=== PATIENT | female | born 1965 | race Caucasian/White ===

== ENCOUNTER → 2017-07-04 | Outpatient (CLI) | payer OTHER ==
--- NOTE | 2017-07-04 09:22 | WWHP ---
[facility] - HISTORY AND PHYSICAL DATE OF SERVICE: 07/04/2017 CHIEF COMPLAINT: The patient is here for her routine gynecologic exam and mammogram. HPI: This is a 51-year-old, G2, P2 with an LMP of 06/06/17. She is status post tubal ligation. She is without gynecologic complaints. She states her periods are regular every month and she denies any intermenstrual bleeding or menstrual problems. PAST MEDICAL HISTORY: Rheumatoid arthritis. MEDICATIONS: 1. Methotrexate 10 pills weekly. 2. Prednisone 10 mg daily. 3. Folic acid 1 daily. ALLERGIES: No known drug allergies. PAST SURGICAL HISTORY: Breast biopsies in 2014 and 2015, tonsillectomy, section x2, and tubal ligation in the past. 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 SOCIAL HISTORY: She briefly smoked in 1993, but quit then. She has about 1 to 2 alcohol containing drinks per month and denies drug use. 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 FAMILY HISTORY: Unremarkable. REVIEW OF SYSTEMS: She has gained about 12 pounds over the last year. She denies respiratory, cardiac or GI problems. PHYSICAL EXAM: Blood pressure 100/60, height 5 feet 6 inches, weight 192 pounds. Temperature 98.4, pulse 94. This is a well-developed, well-nourished, white female, who is alert and oriented x3, in no acute distress HEENT is within normal limits. NECK: Supple without mass or thyromegaly. CHEST AND LUNGS: Clear to auscultation. HEART: Regular rate and rhythm. Breasts are without mass or discharge. Axillary exam is negative for adenopathy. BACK: Negative for CVA tenderness. ABDOMEN: Soft, nontender, without palpable masses. PELVIC EXAM: Normal external genitalia. Cervix and vagina appear normal. There is no unusual discharge and no evidence of prolapse. The uterus is mid position, nongravid size and nontender. There are no palpable adnexal masses or tenderness. Rectovaginal exam is negative for mass or tenderness and is negative for occult blood. EXTREMITIES: Nontender. IMPRESSION: A 51-year-old female with normal gynecologic exam who continues to have regular menstrual periods and is status post tubal ligation. PLAN: 1. Pap smear was deferred since she had a negative one last year. 2. Self-breast examination was discussed. 3. Mammogram will be done today. 4. Osteoporosis prevention was discussed. 5. Screening colonoscopy was recommended because of her age and she states she will do this through Dr. Peña, her primary care physician. 6. She will return in 1 year. 7. She will also call if she is having menstrual problems. MMILNA / BON: [id number] /
--- NOTE | 2017-07-06 09:55 | MM ---
Reason for exam: screening (asymptomatic). Last mammogram was performed 1 year and 1 month ago. History: Family history of breast cancer in grandmother. Benign left breast aspiration of the left breast, April 18, 2013. Physical Findings: A clinical breast exam by your physician is recommended on an annual basis and results should be correlated with mammographic findings. MG 3D Screening Mammo W/Cad Bilateral CC and MLO view(s) were taken. Prior study comparison: June 08, 2016, right breast MG work up mamm w CAD RT. June 06, 2016, bilateral MG screening mammo w CAD. The breast tissue is heterogeneously dense. This may lower the sensitivity of mammography. Previous mammotome biopsy in the right breast. There is chronic nodularity in the left breast. No significant changes when compared with prior studies. ASSESSMENT: Negative, BI-RAD 1 RECOMMENDATION: Routine screening mammogram of both breasts in 1 year.
== END ==
LOC: WWCWWP 07:46
PROVIDERS: ATTEND Obstetrics & Gynecology
DX: Z12.31 Encounter for screening mammogram for malignant neoplasm of breast (principal)
CPT/HCPCS: 77063; G0202

== ENCOUNTER 2017-09-27 09:07 | Emergency (ER) | payer OTHER ==
[2017-09-27] MEDS ORDERED: KETOROLAC 60 MG/2 ML VIAL IM STA (09:24)
--- NOTE | 2017-09-27 09:29 | ED ---
General Adult HPI - General Chief complaint: Trauma Stated complaint: RIB PAIN LEFT SIDE Time Seen by Provider: 09/27/17 09:18 Source: patient, RN notes reviewed Mode of arrival: ambulatory Limitations: no limitations - History of Present Illness Initial comments: This a 51-year-old female presents emergency Department chief complaint of left- sided rib pain. Patient states this started on Sunday after she lifted her mother who is essentially non-weightbearing on her leg because she had foot surgery. She states she went to her primary care physician who told her that she tore some cartilage from her bed. She states that there is an area that is severely tender when you palpate over it. She states she does have pain with deep inspiration but has no shortness of breath. She denies any palpitations, abdominal pain, nausea, vomiting diarrhea constipation. She states she was given Toradol which helped tremendously but states she was prescribed codeine baclofen has not helped. Patient states that she try to go to work today the pain is unbearable and she was told to leave work and to be evaluated. - Related Data Home Medications Medication Instructions Recorded Confirmed Acetaminophen-Codeine 300-30mg 1 tab PO TID PRN 09/27/17 09/27/17 [Tylenol #3] Baclofen [Lioresal] 20 mg PO BID PRN 09/27/17 09/27/17 Previous Rx's Medication Instructions Recorded Hydrocodone/Acetaminophen [[place] 1 tab PO Q6HR PRN #20 tab 09/27/17 5-325] Ibuprofen [Motrin] 600 mg PO Q8HR PRN #30 tab 09/27/17 Levofloxacin [Levaquin] 500 mg PO DAILY #10 tab 09/27/17 Allergies Allergy/AdvReac Type Severity Reaction Status Date / Time No Known Allergies Allergy Verified 09/27/17 09:28 Review of Systems ROS Statement: Those systems with pertinent positive or pertinent negative responses have been documented in the HPI. ROS Other: All systems not noted in ROS Statement are negative. Past Medical History Additional Past Medical History / Comment(s): RA History of Any Multi-Drug Resistant Organisms: None Reported Past Surgical History: Section, Tonsillectomy, Tubal Ligation Past Psychological History: No Psychological Hx Reported Smoking Status: Never smoker Past Alcohol Use History: Rare Past Drug Use History: None Reported General Exam Limitations: no limitations General appearance: alert, in no apparent distress Head exam: Present: atraumatic, normocephalic, normal inspection Neck exam: Present: normal inspection, full ROM. Absent: tenderness, meningismus, lymphadenopathy Respiratory exam: Present: normal lung sounds bilaterally, chest wall tenderness (Tenderness over the left anterior lateral ribs just inferior to the breast). Absent: respiratory distress, wheezes, rales, rhonchi, stridor Cardiovascular Exam: Present: regular rate, normal rhythm, normal heart sounds. Absent: systolic murmur, diastolic murmur, rubs, gallop, clicks GI/Abdominal exam: Present: soft, normal bowel sounds. Absent: distended, tenderness, guarding, rebound, rigid Back exam: Absent: CVA tenderness (R), CVA tenderness (L) Neurological exam: Present: alert, oriented X3, CN II-XII intact, reflexes normal. Absent: motor sensory deficit Skin exam: Present: warm, dry, intact, normal color. Absent: rash Course Vital Signs 09/27/17 09:12 Temperature 97.5 F L Pulse Rate 113 H Respiratory 20 Rate Blood Pressure 126/74 O2 Sat by Pulse 100 Oximetry Medical Decision Making - Medical Decision Making 51-year-old female presented emergency from for left-sided rib pain. Patient had injury after lifting her mother. Patient's pain is reproducible. Chest x- ray shows no rib fracture though she has developed pneumonia secondary to poor inspiration. Patient will be discharged on antibiotics, since a spirometry, anti-inflammatories and [place]. I did advise her that she needs a recheck in 2 days return for any worsening symptoms. Disposition Clinical Impression: Chest wall muscle strain, Pneumonia Disposition: HOME SELF-CARE Condition: Stable Instructions: Chest Wall Pain (ED), Pneumonia (ED) Additional Instructions: Please return to the Emergency Department if symptoms worsen or any other concerns. Prescriptions: Hydrocodone/Acetaminophen [[place] 5-325] 1 tab PO Q6HR PRN #20 tab PRN Reason: Pain Ibuprofen [Motrin] 600 mg PO Q8HR PRN #30 tab PRN Reason: Pain Levofloxacin [Levaquin] 500 mg PO DAILY #10 tab Referrals: Denise Peña DO [Primary Care Provider] - 1-2 days Time of Disposition: 10:02
--- NOTE | 2017-09-27 09:51 | XR ---
EXAMINATION TYPE: XR ribs LT w pa chest xray DATE OF EXAM: 09/27/2017 COMPARISON: NONE HISTORY: Pain TECHNIQUE: Single view of the chest for views of the ribs are submitted. FINDINGS: Left basilar atelectasis or infiltrate. No Evidence for pneumothorax. No evidence for foca l contusion. Mediastinal structures are midline. Evaluation of the ribs fails to demonstrate eviden ce for displaced rib fracture or secondary sign of rib fracture. IMPRESSION: 1. No evidence for displaced left-sided rib fracture however at the left lung base there is atelectas is and/or infiltrate noted. Correlate clinically.
[2017-09-27 10:25] VITALS: BP 110/56; PULSE 91; RESP 18; TEMP 97.4
== END 2017-09-27 10:25 | disposition home or self-care (01) ==
LOC: EC 09:07
DX: S29.011A Strain of muscle and tendon of front wall of thorax, initial encounter (principal); X50.0XXA Overexertion from strenuous movement or load, initial encounter; Y93.F2 Activity, caregiving, lifting; Y92.009 Unspecified place in unspecified non-institutional (private) residence as the place of occurrence of the external cause
CPT/HCPCS: 93005; 71101; 99284; 96372; J1885

== ENCOUNTER 2017-11-03 21:18 | Emergency (ER) | payer OTHER ==
[2017-11-03] MEDS ORDERED: MORPHINE SULFATE 4 MG/ML SYRINGE IV STA (22:47)
[2017-11-03] MEDS ORDERED: methylPREDNISolone SOD SUCCI 125 MG/2 ML VIAL IM STA (22:47)
--- NOTE | 2017-11-03 22:57 | ED ---
General Adult HPI - General Chief complaint: Shortness of Breath Stated complaint: Sob Time Seen by Provider: 11/03/17 22:35 Source: patient, family Mode of arrival: wheelchair Limitations: no limitations - History of Present Illness Initial comments: This patient is a 51-year-old woman who presents with complaint that she is having a flareup of her rheumatoid arthritis. She is having pains in the bilateral hips, knees, ankles, and wrists especially. She states that she had been taking methotrexate up until approximately one month ago, when she developed some mouth ulcerations and some odynophagia. She states that her roll coverer, Dr. Ni then stopped her methotrexate and put her on prednisone. She states that she is currently taking about 30 mg of prednisone daily, but she has had ever increasing pain. She states that she will be due to start biologic therapy for the RA, but she was still having the pre- administration clearance. The patient is denying symptoms of infection, including no fever, chills, cough, sinus congestion, sore throat, chest pain, abdominal pain, nausea or vomiting, dysuria or frequency. She did state that she was having so much pain that she was hyperventilating when she woke up and she felt like she couldn't catch her breath for number of minutes. -: days(s) Quality: dull, constant Consistency: constant Improves with: none Worsens with: none Associated Symptoms: denies other symptoms Treatments Prior to Arrival: NSAID - Related Data Home Medications Medication Instructions Recorded Confirmed Acetaminophen-Codeine 300-30mg 1 tab PO TID PRN 09/27/17 09/27/17 [Tylenol #3] Baclofen [Lioresal] 20 mg PO BID PRN 09/27/17 09/27/17 Previous Rx's Medication Instructions Recorded Hydrocodone/Acetaminophen [[place] 1 tab PO Q6HR PRN #20 tab 09/27/17 5-325] Ibuprofen [Motrin] 600 mg PO Q8HR PRN #30 tab 09/27/17 Levofloxacin [Levaquin] 500 mg PO DAILY #10 tab 09/27/17 Allergies Allergy/AdvReac Type Severity Reaction Status Date / Time No Known Allergies Allergy Verified 11/03/17 21:31 Review of Systems ROS Statement: Those systems with pertinent positive or pertinent negative responses have been documented in the HPI. ROS Other: All systems not noted in ROS Statement are negative. Constitutional: Denies: fever, chills ENT: Denies: throat pain, congestion Respiratory: Reports: as per HPI. Denies: cough Cardiovascular: Denies: chest pain, palpitations, orthopnea, edema Gastrointestinal: Denies: abdominal pain, nausea, vomiting, diarrhea Genitourinary: Denies: dysuria, hematuria Musculoskeletal: Reports: as per HPI, arthralgia Skin: Denies: rash Neurological: Denies: headache Psychiatric: Denies: anxiety Past Medical History Past Medical History: Pneumonia Additional Past Medical History / Comment(s): RA History of Any Multi-Drug Resistant Organisms: None Reported Past Surgical History: Section, Tonsillectomy, Tubal Ligation Past Psychological History: No Psychological Hx Reported Smoking Status: Never smoker Past Alcohol Use History: Rare Past Drug Use History: None Reported General Exam Limitations: no limitations General appearance: alert, in no apparent distress Head exam: Present: atraumatic, normocephalic Eye exam: Present: normal appearance. Absent: scleral icterus, conjunctival injection ENT exam: Present: normal oropharynx Neck exam: Present: normal inspection, full ROM Respiratory exam: Present: normal lung sounds bilaterally. Absent: respiratory distress, wheezes, rales, rhonchi, stridor Cardiovascular Exam: Present: regular rate, normal rhythm, normal heart sounds GI/Abdominal exam: Present: soft. Absent: distended, tenderness, guarding, rebound, rigid, mass Extremities exam: Present: normal inspection, normal capillary refill. Absent: pedal edema, calf tenderness Back exam: Present: normal inspection. Absent: CVA tenderness (R), CVA tenderness (L) Neurological exam: Present: alert Skin exam: Present: warm, dry, intact, normal color. Absent: rash Course Vital Signs 11/03/17 11/03/17 21:26 23:19 Temperature 97.2 F L 97.6 F Pulse Rate 108 H 78 Respiratory 24 16 Rate Blood Pressure 104/60 124/62 O2 Sat by Pulse 97 100 Oximetry Medical Decision Making - Medical Decision Making Patient is a 51-year-old woman with exacerbation of rheumatoid arthritis joint pains. The patient chief complaint initially entered as dyspnea, but on repeat questioning, patient states she only has some shortness of breath when she is waking up and trying to get out of bed and she believes that this may be a reflection of the joint pain she is having. He is not having any chest symptoms here. Chest x-ray was initially ordered but declined. Patient given analgesic and steroid and to follow-up with Dr. Ni. Disposition Clinical Impression: Rheumatoid arthritis Disposition: HOME SELF-CARE Condition: Good Instructions: Rheumatoid Arthritis (ED) Referrals: Denise Peña DO [Primary Care Provider] - 1-2 days Candelaria Ni MD [STAFF PHYSICIAN] - 1-2 days
[2017-11-03 23:20] VITALS: RESP 16; TEMP 97.6
[2017-11-04 00:29] VITALS: BP 148/93; PULSE 84
== END 2017-11-04 00:29 | disposition home or self-care (01) ==
LOC: EC 21:18
DX: M06.9 Rheumatoid arthritis, unspecified (principal); R06.02 Shortness of breath
CPT/HCPCS: 99284; 96374; 96372; J2270; J2930

== ENCOUNTER 2017-11-19 21:48 | Emergency (ER) | payer OTHER ==
[2017-11-19] MEDS ORDERED: MORPHINE SULFATE 4 MG/ML SYRINGE IM STA (23:47)
[2017-11-19] MEDS ORDERED: methylPREDNISolone SOD SUCCI 125 MG/2 ML VIAL IM ONE (23:47)
--- NOTE | 2017-11-19 23:49 | ED ---
General Adult HPI - General Chief complaint: Recheck/Abnormal Lab/Rx Stated complaint: extreme pain from lupus and RA Time Seen by Provider: 11/19/17 23:29 Source: patient Mode of arrival: wheelchair Limitations: no limitations - History of Present Illness Initial comments: This patient is a 51-year-old woman with history of which she is told was rheumatoid arthritis, presenting with a flare up of polyarthralgias. She indicates that she has had pain and swelling to the MCP joints of both hands. She is also having bilateral shoulder, bilateral hip, bilateral wrist and knee pains. Her condition had been doing relatively well until she started tapering off her steroid dose. She had been taking 60 mg prednisone daily, and when she decreased to 40 mg she noted that the symptoms were returning. The patient had recently started with a new tire mold engraver, Dr. Thompson (sp?), Who saw her and she states "sent off 16 vials of blood," and will be following with her in the coming week. The patient states she is here to see if she should increase her steroid dose until then. Patient is denying any signs or symptoms of infection, including no fevers or chills, no cough, sinus congestion, sore throat, headache, neck pain, dyspnea, nausea or vomiting, or any change in urination or bowel movements. -: days(s) Quality: aching Consistency: constant Improves with: other (Steroids) Worsens with: none Associated Symptoms: denies other symptoms - Related Data Home Medications Medication Instructions Recorded Confirmed Folic Acid 2 mg PO DAILY 11/19/17 11/19/17 Unknown Pain Medication 2 tab PO TID PRN 11/19/17 11/19/17 predniSONE 40 mg PO DIRECTED 11/19/17 11/19/17 Previous Rx's Medication Instructions Recorded predniSONE 60 mg PO DAILY #30 tab 11/19/17 Allergies Allergy/AdvReac Type Severity Reaction Status Date / Time No Known Allergies Allergy Verified 11/19/17 22:59 Review of Systems ROS Statement: Those systems with pertinent positive or pertinent negative responses have been documented in the HPI. ROS Other: All systems not noted in ROS Statement are negative. Constitutional: Denies: fever, chills, weakness Eyes: Denies: vision change ENT: Denies: ear pain, congestion Respiratory: Denies: cough, dyspnea Cardiovascular: Denies: chest pain, palpitations, edema Gastrointestinal: Denies: abdominal pain, nausea, vomiting, diarrhea Genitourinary: Denies: dysuria, frequency, hematuria Musculoskeletal: Reports: as per HPI, joint swelling, arthralgia Skin: Denies: rash Neurological: Denies: headache Past Medical History Past Medical History: Pneumonia Additional Past Medical History / Comment(s): RA History of Any Multi-Drug Resistant Organisms: None Reported Past Surgical History: Section, Tonsillectomy, Tubal Ligation Past Psychological History: No Psychological Hx Reported Smoking Status: Never smoker Past Alcohol Use History: Rare Past Drug Use History: None Reported General Exam Limitations: no limitations General appearance: alert, in no apparent distress Head exam: Present: atraumatic, normocephalic Eye exam: Present: normal appearance. Absent: scleral icterus, conjunctival injection ENT exam: Present: normal oropharynx Neck exam: Present: full ROM Respiratory exam: Present: normal lung sounds bilaterally. Absent: respiratory distress, wheezes, rales, rhonchi, stridor Cardiovascular Exam: Present: regular rate, normal rhythm, normal heart sounds. Absent: systolic murmur, diastolic murmur, rubs, gallop GI/Abdominal exam: Present: soft. Absent: distended, tenderness, guarding Extremities exam: Present: other (Patient has some swelling at the MCP joints of the bilateral hands. No erythema or warmth.) Back exam: Present: normal inspection Neurological exam: Present: alert Skin exam: Present: warm, dry, intact, normal color. Absent: rash Course Vital Signs 11/19/17 22:05 Temperature 97 F L Pulse Rate 101 H Respiratory 16 Rate Blood Pressure 109/60 O2 Sat by Pulse 99 Oximetry Disposition Clinical Impression: Polyarthralgia Disposition: HOME SELF-CARE Condition: Fair Instructions: Arthralgia (ED) Prescriptions: predniSONE 60 mg PO DAILY #30 tab Referrals: Denise Peña DO [Primary Care Provider] - 1-2 days
[2017-11-20 00:35] VITALS: BP 109/57; PULSE 85; RESP 17; TEMP 97.8
== END 2017-11-20 00:35 | disposition home or self-care (01) ==
LOC: EC 21:48
DX: M25.512 Pain in left shoulder (principal); M25.511 Pain in right shoulder; M25.551 Pain in right hip; M25.552 Pain in left hip; M25.531 Pain in right wrist; M25.532 Pain in left wrist; M25.561 Pain in right knee; M25.562 Pain in left knee; M25.541 Pain in joints of right hand; M25.542 Pain in joints of left hand; M06.9 Rheumatoid arthritis, unspecified; Z79.52 Long term (current) use of systemic steroids
CPT/HCPCS: 99283; 96372 ×2; J2270; J2930

== ENCOUNTER → 2018-08-06 | Outpatient (CLI) | payer OTHER ==
[2018-08-06 15:31] VITALS: BP 116/68; PULSE 69; TEMP 98.2; BMI 23.0
--- NOTE | 2018-08-06 16:10 | P.HPOB ---
History of Present Illness H&P Date: 08/06/18 Chief Complaint: The patient is here for her routine gynecologic exam and mammogram. This is a 52-year-old with an LMP of 07/18/2018. The patient states her menses continue to be regular every month that seem to have gotten longer. They are not extremely heavy, but can last up to 10 days. She is status post tubal ligation. She is otherwise without gynecologic complaints. Review of Systems The patient has lost 45 pounds over the last year. She attributes this to the diagnosis of lupus this year. She denies respiratory, cardiac, or G.I. problems. Past Medical History Past Medical History: Rheumatoid Arthritis (RA) Additional Past Medical History / Comment(s): Lupus with skin involvement. 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 History of Any Multi-Drug Resistant Organisms: None Reported Past Surgical History: Breast Surgery (2014+2015), Section (x2), Tonsillectomy, Tubal Ligation Past Psychological History: No Psychological Hx Reported Smoking Status: Former smoker (Briefly smoked in 1993) Past Alcohol Use History: Rare (One or 2 per month) Past Drug Use History: None Reported Additional History: She has been since 1996 works for [employer] doing [email or web address]ce[employer] and [employer]. - Past Family History Father Family Medical History: No Reported History Mother Family Medical History: No Reported History Medications and Allergies Home Medications Medication Instructions Recorded Confirmed Type predniSONE 60 mg PO DAILY #30 tab 11/19/17 08/06/18 Rx Hydroxychloroquine Sulfate 200 mg PO BID 08/06/18 08/06/18 History [Plaquenil] Allergies Allergy/AdvReac Type Severity Reaction Status Date / Time No Known Allergies Allergy Verified 08/06/18 15:25 Exam Vital Signs Temp Pulse BP 08/06/18 15:25 98.2 F 69 116/68 Intake and Output 08/06/18 08/06/18 08/06/18 06:59 14:59 22:59 Other: Weight 66.678 kg Height 5'7", weight 147 pounds, BMI 23.0. This is a well-developed well-nourished white female who is alert and oriented times 3 in no acute distress. HEENT: Within normal limits. NECK: Supple without mass or thyromegaly. CHEST AND LUNGS: Clear to auscultation. HEART: Regular rate and rhythm. BREASTS: Are without mass or discharge. AXILLARY EXAM: Negative for adenopathy. BACK: Negative for CVA tenderness. ABDOMEN: Soft, nontender, without palpable masses. PELVIC EXAM: Normal external genitalia with mild atrophy. Cervix and vagina appear normal with mild atrophy. There is no unusual discharge. There is no evidence of prolapse. The uterus is midposition, multiparous, nongravid size and nontender. There are no palpable adnexal masses or tenderness. RECTAL EXAM: rectovaginal exam is negative for mass or tenderness and is negative for occult blood. EXTREMITIES: Nontender. IMPRESSION: 1. 52-year-old premenopausal female status post tubal sterilization with normal gynecologic exam. 2. Mild increase in length of menstrual periods without extremely heavy flow. PLAN: 1. Pap smear was performed. 2. Self breast awareness was discussed with the patient. 3. Screening mammogram will be done today. 4. We have had a long discussion regarding her menstrual periods. She will keep an menstrual calendar and call if having menstrual irregularities or problems such as heavy or worsening prolongation of periods. 5. I have recommended screening colonoscopy. Dr. Reid's name was given to the patient for this. She can also discuss this with Dr. Peña for other recommendations. 6. Osteoporosis prevention was discussed. 7. She will return in one year.
--- NOTE | 2018-08-12 10:21 | MM ---
Reason for exam: screening (asymptomatic). Last mammogram was performed 1 year and 1 month ago. History: Family history of breast cancer in grandmother. Benign left breast aspiration of the left breast, April 18, 2013. Physical Findings: A clinical breast exam by your physician is recommended on an annual basis and results should be correlated with mammographic findings. MG 3D Screening Mammo W/Cad Bilateral CC and MLO view(s) were taken. Prior study comparison: July 04, 2017, bilateral MG 3d screening mammo w/cad. June 08, 2016, right breast MG work up mamm w CAD RT. The breast tissue is heterogeneously dense. This may lower the sensitivity of mammography. Previous mammotome biopsy in the right breast. There is chronic nodularity in the right breast. No significant changes when compared with prior studies. ASSESSMENT: Benign, BI-RAD 2 RECOMMENDATION: Routine screening mammogram of both breasts in 1 year.
== END | disposition home or self-care (01) ==
LOC: WWCWWP 14:49
PROVIDERS: ATTEND Obstetrics & Gynecology
DX: Z12.31 Encounter for screening mammogram for malignant neoplasm of breast (principal)
CPT/HCPCS: 77063; 77067

== ENCOUNTER → 2019-10-01 | Outpatient (CLI) | payer OTHER ==
[2019-10-01 10:43] VITALS: BP 106/61; PULSE 74; RESP 16; TEMP 97.8
--- NOTE | 2019-10-01 11:27 | P.HPOB ---
History of Present Illness H&P Date: 10/01/19 Chief Complaint: The patient is here for her routine gynecologic exam and ma mmogram. This is a 53-year-old with an LMP of 09/22/2019. The patient states her menses are regular every month and are getting shorter. She denies any significant hot flashes. She has been experiencing some urinary symptoms where she tends to void smaller amounts and occasionally has some urinary urgency even though she had recently voided. She denies dysuria. She states it is not like a typical urinary tract infection which she has had in the past. She denies any vaginal odor. She is status post tubal ligation. Review of Systems The patient has gained 27 pounds over the last year. She thinks this is related to her diet and from drinking large amounts of pop. She denies respiratory, cardiac, or G.I. problems. Past Medical History Past Medical History: Rheumatoid Arthritis (RA) Additional Past Medical History / Comment(s): Lupus with skin involvement. 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 History of Any Multi-Drug Resistant Organisms: None Reported Past Surgical History: Breast Surgery, Section, Tonsillectomy, Tubal Ligation Additional Past Surgical History / Comment(s): Breast biopsies. section 2. Past Psychological History: No Psychological Hx Reported Smoking Status: Former smoker Past Alcohol Use History: Occasional (1 or 2 per month) Additional Past Alcohol Use History / Comment(s): Briefly smoked in 1993. 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 - Past Family History Father Family Medical History: No Reported History Mother Family Medical History: No Reported History Medications and Allergies Home Medications Medication Instructions Recorded Confirmed Type Adalimumab [Humira] 10 mg SQ WEEKLY 10/01/19 10/01/19 History predniSONE 10 mg PO DAILY PRN 10/01/19 10/01/19 History Allergies Allergy/AdvReac Type Severity Reaction Status Date / Time No Known Allergies Allergy Verified 10/01/19 10:43 Exam Vital Signs Temp Pulse Resp BP Pulse Ox 10/01/19 10:36 97.8 F 74 16 106/61 98 Intake and Output 09/30/19 10/01/19 10/01/19 22:59 06:59 14:59 Other: Weight 78.925 kg Height 5 feet 4 inches, weight 174 pounds, BMI 29.9. This is a well-developed well-nourished white female who is alert and oriented times 3 in no acute distress. HEENT: Within normal limits. NECK: Supple without mass or thyromegaly. CHEST AND LUNGS: Clear to auscultation. HEART: Regular rate and rhythm. BREASTS: Are without mass or discharge. AXILLARY EXAM: Negative for adenopathy. BACK: Negative for CVA tenderness. ABDOMEN: Soft, nontender, without palpable masses. PELVIC EXAM: Normal external genitalia with minimal atrophy. Cervix and vagina appear normal. There is no unusual discharge. There is no evidence of prolapse. The uterus is midposition, approximately 10 week size and nontender. There are no palpable adnexal masses or tenderness. RECTAL EXAM: Rectovaginal exam is negative for mass or tenderness and is negative for occult blood. EXTREMITIES: Nontender. IMPRESSION: 1. 53-year-old premenopausal female who is status post tubal ligation with mild uterine enlargement. 2. Occasional urinary urgency. Differential diagnosis will include UTI or uterine pressure on the bladder from possible uterine fibroids. PLAN: 1. Pap smear was deferred since she had a negative one on 08/06/2018. 2. Self breast awareness was discussed with the patient. 3. Screening mammogram will be done today. 4. Clean catch midstream urine specimen will be obtained for urinalysis and culture with sensitivity. I have recommended that she try to empty the bladder as completely as possible with more time and by relaxation and not by bearing down. I have also recommended avoiding holding urine longer than needed and I have also suggested having a trial of timed voids. I also recommended regular kegal exercises and instructions were given on this. 5. I have recommended pelvic ultrasound to further evaluate the uterine enlargement. 6. Weight control was discussed with the patient. I have stressed the importance of good nutrition, regular meals, regular exercise and adequate fiber in the diet. 7. She was advised to return in one year for her annual well woman exam and as needed.
[2019-10-01 13:40] LABS: Appearance,Urine Clear (Clear); Bilirubin,Urine Negative (Negative); Blood,Urine Negative (Negative); Color,Urine Yellow; Glucose,Urine (UA) Negative (Negative); Ketones,Urine Negative (Negative); Leukocyte Esterase,Urine Negative (Negative); Nitrite,Urine Negative (Negative); PH, Urine 5.5 (5.0-8.0); Protein,Urine Negative (Negative); Specific Gravity,Urine 1.019 (1.001-1.035); Urobilinogen,Urine <2.0 mg/dL (<2.0)
--- NOTE | 2019-10-02 08:54 | P.PN ---
Progress Note - Text Progress Note Date: 10/02/19 Urinalysis from 10/01/19 was negative. This result was left on the patient's voicemail. She was also advised to schedule pelvic US as recommended.
--- NOTE | 2019-10-03 10:12 | MM ---
Reason for exam: screening (asymptomatic). Last mammogram was performed 1 year and 2 months ago. History: Family history of breast cancer in grandmother. Benign left breast aspiration of the left breast, April 18, 2013. Physical Findings: A clinical breast exam by your physician is recommended on an annual basis and results should be correlated with mammographic findings. MG 3D Screening Mammo W/Cad Bilateral CC and MLO view(s) were taken. Prior study comparison: August 06, 2018, bilateral MG 3d screening mammo w/cad. July 04, 2017, bilateral MG 3d screening mammo w/cad. The breast tissue is heterogeneously dense. This may lower the sensitivity of mammography. Previous mammotome biopsy in the right breast. No significant changes when compared with prior studies. ASSESSMENT: Negative, BI-RAD 1 RECOMMENDATION: Routine screening mammogram of both breasts in 1 year.
--- NOTE | 2019-10-07 09:24 | P.PN ---
Progress Note - Text Progress Note Date: 10/07/19 OUTPATIENT FOLLOW-UP NOTE TEST(S)/RESULTS: Urinalysis and urine culture from 10/01/2019 were both negative. METHOD OF NOTIFICATION: These results were left on the patient's voicemail. PATIENT COMMENTS: DIAGNOSIS: Negative testing for urinary infection. DISCUSSION: The patient has an appointment for a pelvic ultrasound for uterine enlargement on 10/13/2019. Her urinary urgency and urinary frequency may be related to the uterine enlargement. PLAN: Pelvic ultrasound in 6 days.
== END | disposition home or self-care (01) ==
LOC: WWCWWP 10:30
PROVIDERS: ATTEND Obstetrics & Gynecology
DX: Z12.31 Encounter for screening mammogram for malignant neoplasm of breast (principal); R39.15 Urgency of urination
CPT/HCPCS: 77063; 77067; 81003; 87086

== ENCOUNTER → 2019-12-01 | Outpatient (CLI) | payer OTHER | END | disposition home or self-care (01) | DX: N13.2 Hydronephrosis with renal and ureteral calculous obstruction (principal) | CPT/HCPCS: 74176 ==

== ENCOUNTER → 2019-12-02 | Outpatient (CLI) | payer OTHER ==
[2019-12-02 11:43] VITALS: BP 111/75; PULSE 85; RESP 18; TEMP 97.8
--- NOTE | 2019-12-02 12:41 | P.PN ---
Progress Note - Text Progress Note Date: 12/02/19 Chief Complaint: Genital itching followed by rash which started 5 days ago. HPI: This is a 53-year-old with an LMP of 09/22/2019. The patient states she develops vulvar pruritus 5 days ago and she thought was a yeast infection. She used [id number] Monistat. One to 2 days later she noticed a rash of the vulva. She states she has noticed a slight clearish discharge without odor. She states the pruritus and discomfort goes just inside of the vagina. She is currently in the process of getting a divorce. She has been with her current sexual partner for about 1 year. ROS: She has been experiencing some right flank pain and is undergoing a workup for this. She was also noted to have some urinary frequency and had a urine test done by her obstetrics gyn which showed trace blood. She does not have a fever and had slight discomfort with sexual intercourse. PE: Blood pressure: 111/75, Height: 5 feet 4 inches, Weight: 159 pounds, Temperature: 97.8, Pulse: 85. Pulse oximeter 99%. This is a well developed, well nourished, white female who is alert and orientedx3, in no acute distress. External genitalia: There are multiple bilateral vulvar ulcerated sores with minimal peripheral erythema. They are mildly tender. There are also small ulcerations on the inner aspect of the labia minora extending into the external vagina. These are also mildly tender. Vagina: There are small ulcerated lesions as above. The inner vagina and cervix appear normal with no unusual discharge or odor. Impression: 1. Ulcerated vulvar and external vagina lesions suspicious for genital herpes. These appear slightly healed over. Differential diagnosis would also include nonspecific contact vulvitis and genital trauma from sexual activity, but most likely represents genital herpes by its appearance. Plan: 1. We have had a long discussion regarding the genital findings and my suspicion for genital HSV. She understands that testing can be limited in that negative testing does not confirm that she has not been exposed to HSV. This may be negative if the ulcerated lesions from HSV have healed over. The ACOG FAQ handout on genital herpes was given to the patient. 2. STD prevention was discussed. I have stressed the importance of limiting sexual partners and I recommended that she use condoms if she is sexually active. She is to abstain from sexual activity at this time because of the lesions noted on exam today. 3. Additional testing will include GC and chlamydia obtained from the cervix. Affirm testing for Trichomonas, Zelda and Gardnerella was obtained from the vagina. Blood tests will include HIV, RPR, hepatitis B surface antigen, hepatitis C antibody, and HSV antibody. 4. Valtrex 1000 mg by mouth every 12 hours 7 days. Time spent with the patient: 25 minutes
[2019-12-02 19:13] LABS: Hepatitis B Surface Antigen Non-Reactive (Non-Reactive); Hepatitis C IgG Antibody Non-Reactive (Non-Reactive)
[2019-12-02 21:00] LABS: HIV 2 AB Non-Reactive (Non-Reactive); HIV AB P24 Non-Reactive (Non-Reactive); HIV P24 AG Non-Reactive (Non-Reactive)
[2019-12-03 05:44] LABS: Herpes simplex I and/or II IgM 3.25 INDEX (<=0.90); Herpes simplex IgG I Ab 0.76 (< or = 0.90); Herpes simplex IgG II Ab 0.43 (< or = 0.90)
--- NOTE | 2019-12-03 12:18 | P.PN ---
Progress Note - Text Progress Note Date: 12/03/19 OUTPATIENT FOLLOW-UP NOTE TEST(S)/RESULTS: Test results from 12/02/2019 include positive HSV IgM antibodies with negative HSV IgG G antibodies. HIV is negative, hepatitis B surface antigen is negative, hepatitis C antibody is negative and RPR is negative. Affirm testing is positive for Gardnerella and negative for Trichomonas and Zelda. METHOD OF NOTIFICATION: Patient was notified by phone. PATIENT COMMENTS: The patient has noticed slight discharge and vulvar burning and itching but has not noticed vaginal odor. DIAGNOSIS: Genital HSV with an antibody testing suggestive of primary HSV (+IgM) with no significant IgG response yet. Bacterial vaginosis. DISCUSSION: GC and chlamydia testing are still pending. Genital HSV culture testing is also pending. PLAN: Metronidazole 500 mg by mouth twice a day 7 days. She will continue Valtrex as prescribed. I will call next week to follow-up with her to see how her symptoms are doing. Valtrex 500 mg twice a day 3 days to be used at the onset of future outbreaks symptoms. The electronic prescriptions will be sent to [facility] pharmacy in [place].
--- NOTE | 2019-12-09 11:45 | P.PN ---
Progress Note - Text Progress Note Date: 12/09/19 OUTPATIENT FOLLOW-UP NOTE TEST(S)/RESULTS: Test results from 12/02/2019 include HSV culture positive for HSV type II. I also negative GC, negative chlamydia, negative HIV, negative RPR, negative hepatitis B surface antigen, and negative hepatitis C antibody. METHOD OF NOTIFICATION: The patient was notified in person. PATIENT COMMENTS: The patient states her genital HSV symptoms have resolved. DIAGNOSIS: Primary Genital HSV type II, resolved. DISCUSSION: We have discussed how HSV can recur with outbreaks especially when stressed or rundown. I have stressed the importance of adequate rest, good nutrition, regular exercise and minimizing stress, if possible. PLAN: Valtrex 500 mg by mouth twice a day 3 days to be started at the onset of her initial HSV symptoms. The prescription will be sent electronically to [facility] pharmacy on [facility]. 6 refills will be given.
== END | disposition home or self-care (01) ==
LOC: WWCWWP 11:34
PROVIDERS: ATTEND Obstetrics & Gynecology
DX: Z11.3 Encounter for screening for infections with a predominantly sexual mode of transmission (principal); A60.9 Anogenital herpesviral infection, unspecified
CPT/HCPCS: 86694; 86695; 86696; 86780; 86803; 87340; 87390

== ENCOUNTER → 2019-12-09 | Outpatient (CLI) | payer OTHER ==
--- NOTE | 2019-12-09 11:46 | MR ---
EXAMINATION TYPE: MR kidney wo/w con DATE OF EXAM: 12/09/2019 COMPARISON: CT abdomen and pelvis December 01, 2019. HISTORY: R renal mass CONTRAST: Standard multiplanar, multisequence MRI departmental protocol utilizing 7 mL intravenous Gadavist co ntrast. Imaging performed of the abdomen focusing on the bilateral kidneys. FINDINGS: MRI exam slightly suboptimal as patient has difficulty breath holding. Kidneys: Bilateral renal calculi on CT are less well seen on MRI as expected. Corresponding to area o f concern on recent CT posteriorly upper to midpole level there are suspected two adjacent thin-servando d oval well-circumscribed lesion one with few tiny internal septa and perhaps slight lobulation witho ut suspicious thickened septa or nodularity or nodular enhancement. Bosniak type II lesions are great est. Remainder of both kidneys shows no suspicious solid or cystic mass or hydronephrosis bilaterally . Patent bilateral renal arteries without significant stenosis. Other: Lung bases are clear. The spleen, pancreas, and both adrenal glands are normal in size. The li winsome and gallbladder are felt within normal limits. No suspicious small or large bowel dilatation. Jameson e disc space narrowing right L4-L5 level with spurring and endplate changes. No abdominal ascites or suspicious adenopathy. IMPRESSION: No concerning solid or cystic mass at area of CT concern posterior lateral aspect upper t o mid pole of the right kidney. Bosniak 1 and 2 are felt present.
== END | disposition home or self-care (01) ==
LOC: RADMRIMAIN 10:36
PROVIDERS: ATTEND Urology
DX: N28.89 Other specified disorders of kidney and ureter (principal); D41.01 Neoplasm of uncertain behavior of right kidney
CPT/HCPCS: 74183; A9585

== ENCOUNTER → 2021-01-25 | Outpatient (CLI) | payer OTHER ==
[2021-01-25 15:43] VITALS: BP 113/70; PULSE 101; RESP 18; TEMP 98
--- NOTE | 2021-01-25 16:35 | P.HPOB ---
History of Present Illness H&P Date: 01/25/21 Chief Complaint: The patient is here for her routine gynecologic exam and ma mmogram. This is a 55-year-old with an LMP of October 2019. The patient does have occasional hot flashes about 8 per day which makes her feel warm and is not very bothersome. She has noticed that she has had a fair amount of weight gain over the past 4 months. She had lost about 22 pounds with dietary changes after her last yearly exam on 10/01/2019. She has since gained that back. She is engaged to be on 02/26/2021. She was diagnosed and treated for genital HSV about 1 year ago. She states she had outbreaks about every 6 weeks for the first 6 months and therefore we had discussed suppressive therapy. She is not using suppressive therapy at this time and states her outbreaks have become infrequent. She is otherwise without complaints. Review of Systems The patient has gained 6 pounds(net) over the last year( see HPI). She denies respiratory, cardiac, or G.I. problems. Past Medical History Past Medical History: Rheumatoid Arthritis (RA) Additional Past Medical History / Comment(s): Lupus with skin involvement. 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 She has no other history of STDs. History of Any Multi-Drug Resistant Organisms: None Reported Past Surgical History: Breast Surgery, Section, Tonsillectomy, Tubal Ligation Additional Past Surgical History / Comment(s): Breast biopsies. section 2. Past Psychological History: No Psychological Hx Reported Smoking Status: Former smoker Past Alcohol Use History: Occasional (4 per month) Additional Past Alcohol Use History / Comment(s): Briefly smoked in 1993. Past Drug Use History: None Reported Additional History: She is engaged to be in February 2021. This will be her third marriage. 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 - Past Family History Father Family Medical History: No Reported History Mother Family Medical History: No Reported History Medications and Allergies Home Medications Medication Instructions Recorded Confirmed Type Adalimumab [Humira] 10 mg SQ WEEKLY 10/01/19 01/25/21 History valACYclovir [Valtrex] 500 mg PO BID 3 Days #6 tab 12/09/19 01/25/21 Rx Allergies Allergy/AdvReac Type Severity Reaction Status Date / Time No Known Allergies Allergy Verified 01/25/21 15:37 Exam Vital Signs Temp Pulse Resp BP Pulse Ox 01/25/21 15:40 98.0 F 101 H 18 113/70 99 Intake and Output 01/25/21 01/25/21 01/25/21 06:59 14:59 22:59 Other: Weight 81.647 kg Height 5 feet 3-1/2 inches, weight 180 pounds, BMI 31.4. This is a well-developed well-nourished white female who is alert and oriented times 3 in no acute distress. HEENT: Within normal limits. NECK: Supple without mass or thyromegaly. CHEST AND LUNGS: Clear to auscultation. HEART: Regular rate and rhythm. BREASTS: Are without mass or discharge. AXILLARY EXAM: Negative for adenopathy. BACK: Negative for CVA tenderness. ABDOMEN: Soft, nontender, without palpable masses. PELVIC EXAM: Normal external genitalia with minimal atrophy. Cervix and vagina a ppear normal minimal atrophy. There is no unusual discharge. There is no evidence of prolapse. The uterus is midposition, multiparous nongravid size and nontender. There are no palpable adnexal masses or tenderness. RECTAL EXAM: Rectovaginal exam is negative for mass or tenderness and is negative for occult blood. EXTREMITIES: Nontender. IMPRESSION: 1. 55-year-old menopausal female with normal gynecologic exam. 2. History of genital HSV 2 with a decrease in frequency of outbreaks. PLAN: 1. Pap smear cotest was performed. 2. Self breast awareness was discussed with the patient. 3. Screening mammogram will be done today. 4. I have recommended repeating blood STD testing since some testing up to 6 months before turning positive. The order slip for HIV, RPR, hepatitis B surface antigen, and hepatitis C antibody was given to the patient. She states she will have this drawn today. 5. She is concerned about her weight gain. We have had a long discussion regarding weight control. I have stressed the importance of regular meals, good nutrition, adequate fiber and regular exercise. 6. Valtrex 500 mg by mouth twice a day 3 days which is to be started at the onset of any genital HSV outbreak. The electronic prescription will be sent to [facility] pharmacy on [facility]. 7. She was advised to return in one year for her annual well woman exam.
--- NOTE | 2021-01-26 12:44 | MM ---
Reason for exam: screening (asymptomatic). Last mammogram was performed 1 year and 4 months ago. History: Patient is postmenopausal. Family history of breast cancer in grandmother. Benign left breast aspiration of the left breast, April 18, 2013. Physical Findings: A clinical breast exam by your physician is recommended on an annual basis and results should be correlated with mammographic findings. MG 3D Screening Mammo W/Cad Bilateral CC and MLO view(s) were taken. Prior study comparison: October 01, 2019, bilateral MG 3d screening mammo w/cad. August 06, 2018, bilateral MG 3d screening mammo w/cad. The breast tissue is heterogeneously dense. This may lower the sensitivity of mammography. Previous mammotome biopsy in the right breast. There is no discrete abnormality. No significant changes when compared with prior studies. ASSESSMENT: Benign, BI-RAD 2 RECOMMENDATION: Routine screening mammogram of both breasts in 1 year.
== END ==
LOC: WWCWWP 15:30
PROVIDERS: ATTEND Obstetrics & Gynecology
DX: Z01.419 Encounter for gynecological examination (general) (routine) without abnormal findings (principal); A60.09 Herpesviral infection of other urogenital tract; M06.9 Rheumatoid arthritis, unspecified; Z12.31 Encounter for screening mammogram for malignant neoplasm of breast; Z78.0 Asymptomatic menopausal state; Z87.891 Personal history of nicotine dependence
CPT/HCPCS: 77063; 77067

== ENCOUNTER → 2021-04-08 | Outpatient (CLI) | payer BC ==
[2021-04-09 01:00] LABS: Hepatitis B Surface Antigen Non-Reactive (Non-Reactive); Hepatitis C IgG Antibody Non-Reactive (Non-Reactive)
[2021-04-10 19:45] LABS: HIV 2 AB Non-Reactive (Non-Reactive); HIV AB P24 Non-Reactive (Non-Reactive); HIV P24 AG Non-Reactive (Non-Reactive)
== END | disposition home or self-care (01) ==
LOC: LABWHC1 16:13
PROVIDERS: ATTEND Obstetrics & Gynecology
DX: Z11.3 Encounter for screening for infections with a predominantly sexual mode of transmission (principal)
CPT/HCPCS: 36415; 86780; 86803; 87340; 87390

== ENCOUNTER → 2022-10-18 | Outpatient (CLI) | payer BC ==
[2022-10-18 10:44] VITALS: BP 114/77; PULSE 69; RESP 16; TEMP 98.3
--- NOTE | 2022-10-18 11:29 | MM ---
Reason for Exam: Screening (asymptomatic). Last mammogram was performed 1 year(s) and 9 month(s) ago. Patient History: Menarche at age 19. First Full-Term at age 23. Postmenopausal. 04/18/2013, Benign Cyst Aspiration on the left side. Maternal grandmother had breast cancer. Risk Values: Inga 5 year model risk: 1.0%. NCI Lifetime model risk: 6.7%. Prior Study Comparison: 08/06/2018 Bilateral Screening Mammogram, [facility]. 10/01/2019 Bilateral Screening Mammogram, [facility]. 01/25/2021 Bilateral Screening Mammogram, [facility]. Tissue Density: There are scattered fibroglandular densities. Findings: Analyzed By CAD. There is no suspicious group of microcalcifications or new suspicious mass in either breast. Overall Assessment: Negative, BI-RAD 1 Management: Screening Mammogram of both breasts in 1 year. A clinical breast exam by your physician is recommended on an annual basis and results should be correlated with mammographic findings. [facility] will attempt to contact patient to return for supplemental views and ultrasound if indicated. Electronically signed and approved by: Chu Arce DO
--- NOTE | 2022-10-18 12:51 | P.HPOB ---
History of Present Illness H&P Date: 10/18/22 Chief Complaint: The patient is here for her routine gynecologic exam and ma mmogram. This is a 56-year-old with an LMP of 2019. The patient is without gynecologic complaints. She discontinued the daily Valtrex which she was taking for recurrent genital HSV. She has been off of the daily Valtrex for about 8 months and states she has not had any outbreaks during that time. She did have a positive high-risk HPV testing with her Pap smear cotest on 04/08/2021. The Pap smear cytology was negative. Review of Systems The patient has gained 29 pounds over the last 2 years. She denies respiratory, cardiac, or G.I. problems. Past Medical History Past Medical History: Rheumatoid Arthritis (RA) Additional Past Medical History / Comment(s): Lupus with skin involvement. 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 She has no other history of STDs. History of Any Multi-Drug Resistant Organisms: None Reported Past Surgical History: Breast Surgery, Section, Tonsillectomy, Tubal Ligation Additional Past Surgical History / Comment(s): Breast biopsies. section 2. Past Psychological History: No Psychological Hx Reported Smoking Status: Former smoker Past Alcohol Use History: Occasional (2 per month) Additional Past Alcohol Use History / Comment(s): Briefly smoked in 1993. Past Drug Use History: None Reported Additional History: She has been since 2020 and this is her third marriage. She now is caring for her mother who now lives with her. She is not working outside the home. - Past Family History Father Family Medical History: No Reported History Mother Family Medical History: Dementia Medications and Allergies Home Medications Medication Instructions Recorded Confirmed Type valACYclovir HCL [Valtrex] 500 mg PO BID 3 Days #6 tab 01/25/21 10/18/22 Rx Allergies Allergy/AdvReac Type Severity Reaction Status Date / Time No Known Allergies Allergy Verified 10/18/22 10:40 Exam Vital Signs Temp Pulse Resp BP Pulse Ox 10/18/22 10:41 98.3 F 69 16 114/77 97 Intake and Output 10/17/22 10/18/22 10/18/22 22:59 06:59 14:59 Other: Weight 94.801 kg Height 5 feet 4 inches, weight 209 pounds, BMI 35.9. This is a well-developed well-nourished white female who is alert and oriented times 3 in no acute distress. HEENT: Within normal limits. NECK: Supple without mass or thyromegaly. CHEST AND LUNGS: Clear to auscultation. HEART: Regular rate and rhythm. BREASTS: Are without mass or discharge. AXILLARY EXAM: Negative for adenopathy. BACK: Negative for CVA tenderness. ABDOMEN: Soft, nontender, without palpable masses. PELVIC EXAM: Normal external genitalia with mild atrophy. Cervix and vagina appear normal with mild atrophy. There is no unusual discharge. There is no evidence of prolapse. The uterus is midposition, nongravid size and nontender. There are no palpable adnexal masses or tenderness. RECTAL EXAM: Rectovaginal exam is negative for mass or tenderness and is negative for occult blood. EXTREMITIES: Nontender. IMPRESSION: 1. 56-year-old menopausal female with normal gynecologic exam. 2. History of genital HSV 2 with infrequent outbreaks. 3. Previous Pap smear cotest on 04/08/2021 with negative Pap smear cytology and positive high-risk HPV testing. PLAN: 1. Pap smear cotest was performed. As per the ASCCP management guidelines, this was to be repeated after 12 months. 2. Self breast awareness was discussed with the patient. We have also discussed symptoms associated with inflammatory breast cancer. 3. Screening mammogram was done today. 4. Osteoporosis prevention was discussed. I have stressed the importance of adequate calcium, vitamin D and regular exercise. Recommended amounts of calcium and vitamin D were also discussed. 5. We will return to episodic treatment for HSV. She will use Valtrex 500 mg by mouth twice a day 3 days and she will start this at the onset of any HSV outbreaks. The electronic prescription will be sent to [facility] pharmacy on [facility]. 5 refills will be given. 6. I have recommended screening colonoscopy. She states she will be seeing her PCP to have this arranged. 7. She was advised to return in one year for her annual well woman exam.
== END ==
LOC: WWCWWP 09:56
PROVIDERS: ATTEND Obstetrics & Gynecology
DX: Z12.31 Encounter for screening mammogram for malignant neoplasm of breast (principal); Z01.411 Encounter for gynecological examination (general) (routine) with abnormal findings; Z86.19 Personal history of other infectious and parasitic diseases; M06.9 Rheumatoid arthritis, unspecified; Z87.891 Personal history of nicotine dependence
CPT/HCPCS: 77063; 77067

== ENCOUNTER → 2024-09-02 | Outpatient (CLI) | payer BC ==
[2024-09-02 14:56] VITALS: BP 123/77; PULSE 86; RESP 16; TEMP 97.9
--- NOTE | 2024-09-02 15:39 | P.HPOB ---
History of Present Illness H&P Date: 09/02/24 Chief Complaint: The patient is here for her routine gynecologic exam and ma mmogram. This is a 58-year-old with an LMP of 2019. Patient states she has had rare HSV outbreaks and believes she only had 1 during the past year. She has not been taking daily Valtrex, but uses it only with outbreaks. She is otherwise without gynecologic complaints and denies any postmenopausal bleeding. Review of Systems The patient has lost 6 pounds over the last year. Last year she had gained 29 pounds over the prior 2 years. She denies respiratory, cardiac, or G.I. problems. Past Medical History Past Medical History: Rheumatoid Arthritis (RA) Additional Past Medical History / Comment(s): Lupus with skin involvement. 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 She has no other history of STDs. History of Any Multi-Drug Resistant Organisms: None Reported Past Surgical History: Breast Surgery, Section, Tonsillectomy, Tubal Ligation Additional Past Surgical History / Comment(s): Breast biopsies. section 2. Past Psychological History: No Psychological Hx Reported Smoking Status: Former smoker Past Alcohol Use History: Rare (2 drinks per year.) Additional Past Alcohol Use History / Comment(s): Briefly smoked in 1993. Past Drug Use History: None Reported Additional History: She has been since 2020 and this is her third marriage. Her currently lives in [place]. 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 She works in [place] and has properties in [place] and in this area - Past Family History Father Family Medical History: No Reported History Mother Family Medical History: Dementia Medications and Allergies Home Medications Medication Instructions Recorded Confirmed Type valACYclovir HCL [Valtrex] 500 mg PO BID 3 Days #6 tab 10/18/22 09/02/24 Rx Gabapentin 300 mg PO TID 09/02/24 09/02/24 History Allergies Allergy/AdvReac Type Severity Reaction Status Date / Time No Known Allergies Allergy Verified 09/02/24 14:50 Exam Vital Signs Temp Pulse Resp BP Pulse Ox 09/02/24 14:54 97.9 F 86 16 123/77 98 Intake and Output 09/02/24 09/02/24 09/02/24 06:59 14:59 22:59 Other: Weight 92.079 kg Height 5 feet 4 inches, weight 203 pounds, BMI 34.8. This is a well-developed well-nourished white female who is alert and oriented times 3 in no acute distress. HEENT: Within normal limits. NECK: Supple without mass or thyromegaly. CHEST AND LUNGS: Clear to auscultation. HEART: Regular rate and rhythm. BREASTS: Are without mass or discharge. AXILLARY EXAM: Negative for adenopathy. BACK: Negative for CVA tenderness. ABDOMEN: Soft, nontender, without palpable masses. PELVIC EXAM: Normal external genitalia with mild atrophy. Cervix and vagina appear normal with mild atrophy. Cervix appears nulliparous. There is no unusual discharge. There is no evidence of prolapse. The uterus is midposition, nongravid size and nontender. There are no palpable adnexal masses or tenderness. RECTAL EXAM: Rectovaginal exam is negative for mass or tenderness and is negative for occult blood. EXTREMITIES: Nontender. IMPRESSION: 1. 58-year-old menopausal female with normal gynecologic exam. 2. History of genital HSV with infrequent outbreaks. 3. She had a Pap smear cotest in 2020 which was positive for HPV with a negative Pap smear. Pap smear cotest on 10/18/2022 was negative. PLAN: 1. Pap smear cotest was performed. Will refer to the ASCCP management guidelines for future follow-up. 2. Self breast awareness was discussed with the patient. We have also discussed symptoms associated with inflammatory breast cancer. 3. Screening mammogram will be done today. 4. Osteoporosis prevention was discussed. I have stressed the importance of adequate calcium, vitamin D and regular exercise. Recommended amounts of calcium and vitamin D were also discussed. 5. She will use Valtrex 500 mg p.o. twice daily x 3 days if she has symptoms of an outbreak. She states she does have this medication at home and does not need a new prescription. 6. Colorectal cancer screening was discussed. I have recommended she look into getting a colonoscopy. She states she will be establishing with a new PCP and will then further discuss colorectal cancer screening options with her PCP. 7. She was advised to return in one year for her annual well woman exam.
--- NOTE | 2024-09-03 09:54 | MM ---
Reason for Exam: Screening (asymptomatic). Last mammogram was performed 1 year(s) and 10 month(s) ago. Patient History: Menarche at age 19. First Full-Term at age 23. Postmenopausal. 04/18/2013, Benign Cyst Aspiration on the left side. Maternal grandmother had breast cancer. Risk Values: Inga 5 year model risk: 1.0%. NCI Lifetime model risk: 6.5%. Prior Study Comparison: 10/01/2019 Bilateral Screening Mammogram, [facility]. 01/25/2021 Bilateral Screening Mammogram, [facility]. 10/18/2022 Bilateral MG 3D screening mammo w/cad, [facility]. Tissue Density: There are scattered areas of fibroglandular density. Findings: Analyzed By CAD. Right breast: There is no suspicious group of microcalcifications or new suspicious mass. Left breast: There is no suspicious group of microcalcifications or new suspicious mass. Overall Assessment: Negative, BI-RAD 1 Management: Screening Mammogram of both breasts in [address] [facility] will attempt to contact patient to return for supplemental views and ultrasound if indicated. Patient should continue monthly self-breast exams. A clinical breast exam by your physician is recommended on an annual basis. This exam should not preclude additional follow-up of suspicious palpable abnormalities. Note on Inga scores and lifetime risk: 1. A Inga score greater than 3% is considered moderate risk. If this is the case, consider specialist referral to assess eligibility for a risk reducing agent. 2. If overall lifetime risk for the development of breast cancer is 20% or higher, the patient may qualify for future screening with alternating mammogram and breast MRI. [facility], , 09/03/2024 9:51 AM. Electronically signed and approved by: Chu Arce DO
== END ==
LOC: WWCWWP 14:33
PROVIDERS: ATTEND Obstetrics & Gynecology
DX: Z12.31 Encounter for screening mammogram for malignant neoplasm of breast (principal); Z87.42 Personal history of other diseases of the female genital tract; Z87.891 Personal history of nicotine dependence
CPT/HCPCS: 77063; 77067